=== PATIENT | female | born 1990 ===

== ENCOUNTER 2020-04-03 17:12 | Outpatient (REF) | payer OTHER, SELFPAY ==
[2020-04-04 01:48] LABS: CT PCR NOT DETECTED (Not Detect.); NG PCR NOT DETECTED (Not Detect.)
[2020-04-04 08:28] LABS: Syphilis Screen Nonreactive (Nonreactive)
[2020-04-05 09:04] LABS: HBS Num1 103.08 mIU/mL (0-7.99); HBc Num1 0.03 S/CO (0.00-0.79); HBsAGNum1 0.15 S/CO (0.00-0.99); Hepatitis B Core Antibody Nonreactive (Nonreactive); Hepatitis B Surface Antigen Negative (Negative); ~Hepatitis B Surface Antibody REACTIVE (Nonreactive)
[2020-04-05 09:25] LABS: HIV AB/AG Nonreactive (Nonreactive); HIV Num 1 0.08 S/CO (0.00-0.99)
== END 2020-04-03 17:13 | disposition home or self-care (01) ==
LOC: HO.LAB 17:12
PROVIDERS: Visit Provider Hospitalist
DX: Z30.09 Encounter for other general counseling and advice on contraception (principal)
CPT/HCPCS: 86704; 86706; 86780; 87340; 87389; 87491; 87591

== ENCOUNTER 2020-04-24 09:27 | Outpatient (REF) | payer OTHER, SELFPAY ==
[2020-04-24 10:29] LABS: Hemoglobin 12.7 g/dl (12.0-16.0); Mean Corpuscular HGB Conc 32.6 g/dl (31.0-35.0); Mean Corpuscular Volume 92.2 fL (80-98); Platelet Count 241 X10*3/uL (160-400); Red Blood Count 4.23 X10*6/uL (4.20-5.50); Red Cell Distribution Width 13.3 % (11.0-16.0); White Blood Count 7.1 X10*3/uL (4.8-10.8)
[2020-04-24 10:49] LABS: Alanine Aminotransferase 14 U/L (0-31); Albumin Level 4.2 g/dL (3.5-5.0); Alkaline Phosphatase 70 U/L (39-117); Anion Gap 13 (12-20); Aspartate Amino Transferase 17 U/L (5-31); Bilirubin Direct 0.3 mg/dL (0.0-0.5); Bilirubin Total 0.9 mg/dL (0.0-1.0); Blood Urea Nitrogen 11 mg/dL (9-16); Carbon Dioxide 25 mmol/L (22-29); Chloride 104 mmol/L (96-108); Cholesterol 128 mg/dL; Estimated Glomerular Filt Rate > 60; Glucose Fasting 77 mg/dL (60-99); HDL Cholesterol 50 mg/dL; LDL Cholesterol Calculated 65 mg/dl; Potassium 4.1 mmol/l (3.3-5.1); Sodium 138 mmol/L (135-145); Total Protein 6.9 g/dL (6.5-8.0); Triglycerides 66 mg/dL
[2020-04-24 11:12] LABS: TSH reflex Free T4 0.35 mIU/mL (0.32-4.0)
== END 2020-04-24 09:28 | disposition home or self-care (01) ==
LOC: HO.LAB 09:27
PROVIDERS: PCP Hospitalist; Visit Provider Hospitalist
DX: Z00.00 Encounter for general adult medical examination without abnormal findings (principal)
CPT/HCPCS: 36415; 80048; 80061; 80076; 84443; 85027

== ENCOUNTER 2021-01-07 19:17 | Outpatient (REF) | payer MEDICAID, SELFPAY ==
[2021-01-07 19:41] LABS: UPreg QC Valid YES; Urine Pregnancy NEGATIVE (NEGATIVE)
== END 2021-01-07 19:18 | disposition home or self-care (01) ==
LOC: HO.LNP 19:17
PROVIDERS: Visit Provider Family Medicine
DX: Z01.810 Encounter for preprocedural cardiovascular examination (principal)
CPT/HCPCS: 81025

== ENCOUNTER 2021-04-16 11:58 | Outpatient (REF) | payer OTHER, SELFPAY ==
--- NOTE | ~2021-04-16 | XR_ITS ---
EXAMINATION: XR KNEE, RIGHT CLINICAL INFORMATION: Pain COMPARISON: None TECHNIQUE: Four views of the right knee. FINDINGS: Bones and soft tissues are normal. No fracture or joint effusion. Alignment is anatomic. Joint spaces are well maintained. No abnormal soft tissue calcification. XR/XR knee RT 2V IMPRESSION: No significant osseous changes to explain patient's pain symptoms.
[2021-04-16 12:16] LABS: MANUAL DIFF FLAG NO
[2021-04-16 12:51] LABS: Basophils Percent Auto 0.6 % (0-2); Eosinophils Absolute Auto 0.1 X10*3/uL (0.0-0.4); Eosinophils Percent Auto 1.4 % (0-4); Hematocrit 39.7 % (37.0-47.0); Imm Gran Abs Auto 0.01 X10*3/uL (0.00-0.03); Imm Gran Pct Auto 0.2 % (0.0-0.4); Lymphocytes Absolute Auto 1.7 X10*3/uL (1.2-4.9); Lymphocytes Percent Auto 33.9 % (20-40); Mean Corpuscular HGB Conc 32.7 g/dl (31.0-35.0); Mean Corpuscular Hemoglobin 29.7 pg (27.0-33.0); Mean Corpuscular Volume 90.8 fL (80.0-98.0); Mean Platelet Volume 12.2 fL (9.4-12.3); Monocytes Absolute Auto 0.5 X10*3/uL (0.1-1.2); Monocytes Percent Auto 10.1 % (2-11); Neutrophils Absolute Auto 2.8 x10*3/uL (2.0-8.3); Neutrophils Percent Auto 53.8 % (45-73); Platelet Count 288 X10*3/uL (160-400); Red Blood Count 4.37 X10*6/uL (4.20-5.50); Red Cell Distribution Width 12.6 % (11.0-16.0); White Blood Count 5.1 X10*3/uL (4.8-10.8)
[2021-04-16 12:59] LABS: Prothrombin Time 11.7 SEC (9.9-13.0)
[2021-04-16 13:02] LABS: Partial Thromboplastin Time 31.4 SEC (24.1-38.0)
[2021-04-16 13:11] LABS: Alanine Aminotransferase 20 U/L (0-31); Albumin Level 4.3 g/dL (3.5-5.0); Alkaline Phosphatase 63 U/L (39-117); Anion Gap 11 (12-20); Aspartate Amino Transferase 17 U/L (5-31); Bilirubin Total 0.5 mg/dL (0.0-1.0); Blood Urea Nitrogen 15 mg/dL (9-16); Calcium 9.2 mg/dL (8.4-10.2); Carbon Dioxide 25 mmol/L (22-29); Chloride 107 mmol/L (96-108); Estimated Glomerular Filt Rate > 60; Glucose Fasting 69 mg/dL (60-99); Sodium 139 mmol/L (135-145); Total Protein 7.3 g/dL (6.5-8.0)
[2021-04-16 13:18] LABS: HCG Quantitative < 2 mIU/mL
== END 2021-04-16 11:59 | disposition home or self-care (01) ==
LOC: HO.LAB 11:58
PROVIDERS: Family Medicine; Visit Provider Hospitalist
DX: Z00.00 Encounter for general adult medical examination without abnormal findings (principal); M25.561 Pain in right knee; R22.41 Localized swelling, mass and lump, right lower limb
CPT/HCPCS: 36415; 73560; 80053; 84702; 85025; 85610; 85730

== ENCOUNTER 2021-04-23 08:18 | Outpatient (REF) | payer OTHER, SELFPAY ==
[2021-04-23 11:38] LABS: C Reactive Protein 0.05 mg/dL (< or = 0.50)
[2021-04-23 12:29] LABS: Erythrocyte Sedimentation Rate 11 MM/HR (0-20)
== END 2021-04-23 08:19 | disposition home or self-care (01) ==
LOC: HO.WFDLDS 08:18
PROVIDERS: Visit Provider Hospitalist
DX: M25.561 Pain in right knee (principal); R22.41 Localized swelling, mass and lump, right lower limb
CPT/HCPCS: 36415; 85652; 86140

== ENCOUNTER 2021-07-16 08:55 | Outpatient (REF) | payer OTHER, SELFPAY ==
[2021-07-16 11:37] LABS: MANUAL DIFF FLAG NO
[2021-07-16 11:42] LABS: Appearance Urine CLEAR; Color Urine YELLOW; Glucose Urine UA NEG (NEG); Leukocyte Esterase Urine NEG (NEG); Nitrite Urine NEG (NEG); Specific Gravity - Urine 1.015 (1.005-1.025); Urine Blood NEG (NEG); Urine Ketones NEG (NEG); Urine Protein NEG (NEG-TRACE)
[2021-07-16 11:43] LABS: Basophils Percent Auto 0.5 % (0-2); Eosinophils Percent Auto 0.7 % (0-4); Hematocrit 37.3 % (37.0-47.0); Hemoglobin 12.5 g/dl (12.0-16.0); Imm Gran Abs Auto 0.01 X10*3/uL (0.00-0.03); Imm Gran Pct Auto 0.2 % (0.0-0.4); Lymphocytes Absolute Auto 1.5 X10*3/uL (1.2-4.9); Lymphocytes Percent Auto 25.9 % (20-40); Mean Corpuscular HGB Conc 33.5 g/dl (31.0-35.0); Mean Corpuscular Hemoglobin 30.6 pg (27.0-33.0); Mean Corpuscular Volume 91.2 fL (80.0-98.0); Mean Platelet Volume 12.2 fL (9.4-12.3); Monocytes Absolute Auto 0.5 X10*3/uL (0.1-1.2); Monocytes Percent Auto 8.8 % (2-11); Neutrophils Absolute Auto 3.6 x10*3/uL (2.0-8.3); Neutrophils Percent Auto 63.9 % (45-73); Platelet Count 245 X10*3/uL (160-400); Red Blood Count 4.09 X10*6/uL (4.20-5.50); Red Cell Distribution Width 12.8 % (11.0-16.0); White Blood Count 5.6 X10*3/uL (4.8-10.8)
[2021-07-16 11:48] LABS: Prothrombin Time 11.3 SEC (9.9-13.0)
[2021-07-16 11:59] LABS: HCG Quantitative < 2 mIU/mL
[2021-07-16 12:10] LABS: Alanine Aminotransferase 17 U/L (0-31); Albumin Level 4.3 g/dL (3.5-5.0); Alkaline Phosphatase 63 U/L (39-117); Anion Gap 10 (12-20); Aspartate Amino Transferase 18 U/L (5-31); Bilirubin Total 0.9 mg/dL (0.0-1.0); Blood Urea Nitrogen 15 mg/dL (9-16); Calcium 9.8 mg/dL (8.4-10.2); Carbon Dioxide 26 mmol/L (22-29); Chloride 106 mmol/L (96-108); Estimated Glomerular Filt Rate > 60; Glucose Fasting 79 mg/dL (60-99); Potassium 4.6 mmol/L (3.3-5.1); Sodium 137 mmol/L (135-145); Total Protein 7.3 g/dL (6.5-8.0)
== END 2021-07-16 08:56 | disposition home or self-care (01) ==
LOC: HO.WFDLDS 08:55
PROVIDERS: Visit Provider Hospitalist
DX: Z01.818 Encounter for other preprocedural examination (principal)
CPT/HCPCS: 36415; 80053; 81003; 84702; 85025; 85610

== ENCOUNTER 2021-09-26 11:01 | Outpatient (REF) | payer OTHER, SELFPAY ==
[2021-09-26 14:54] LABS: Influenza A PCR POSITIVE (Negative); Influenza B PCR NEGATIVE (Negative); Resp Syncy Virus RNA Qual PCR NEGATIVE (Negative); SARS COV2 PCR INHOUSE NEGATIVE (Negative)
== END 2021-09-26 11:02 | disposition home or self-care (01) ==
LOC: HO.LAB 11:01
PROVIDERS: Visit Provider Hospitalist
DX: R09.89 Other specified symptoms and signs involving the circulatory and respiratory systems (principal); Z20.822 Contact with and (suspected) exposure to COVID-19
CPT/HCPCS: 0241U

== ENCOUNTER 2021-11-07 14:38 | Outpatient (REF) | payer OTHER, SELFPAY ==
--- NOTE | ~2021-11-07 | US_ITS ---
EXAMINATION: ULTRASOUND EXTREMITY NONVASCULAR CLINICAL INFORMATION: History of fall 7 years ago with slow the developing lump there is below-knee. COMPARISON: Old right knee exam 04/16/2021 TECHNIQUE: Limited imaging below the right knee was performed. FINDINGS: Imaging of formal lump scanned along the anterior superior left lower leg reveals no mass or fluid collection. There is no echoes to suspect any lipoma either. Probably patient has a prominent anterior tubercle and clinically feels a lump. Correlate with new knee x-rays.. US/US extremity nonvascular IMPRESSION: No echogenic lump, mass or fluid seen inferior to the right knee where patient points to a palpable lump.
== END 2021-11-07 14:39 | disposition home or self-care (01) ==
LOC: HO.HMGCX 14:38
PROVIDERS: PCP Hospitalist; Visit Provider Hospitalist
DX: R22.41 Localized swelling, mass and lump, right lower limb (principal)
CPT/HCPCS: 76882

== ENCOUNTER 2021-11-18 16:45 | Outpatient (REF) | payer OTHER, SELFPAY ==
--- NOTE | ~2021-11-18 | XR_ITS ---
EXAMINATION: XR KNEE, RIGHT CLINICAL INFORMATION: R22.41 - Localized swelling, mass and lump, right lower limb COMPARISON: Radiographs right knee 04/16/2021 TECHNIQUE: Three views of the right knee. FINDINGS: No fracture, dislocation, destructive process, or focal exostosis. No joint narrowing or erosive change or chondrocalcinosis. No suprapatellar effusion. XR/XR knee RT 3V IMPRESSION: Unremarkable right knee.
== END 2021-11-18 16:46 | disposition home or self-care (01) ==
LOC: HO.XRAY 16:45
PROVIDERS: PCP Hospitalist; Visit Provider Hospitalist
DX: R22.41 Localized swelling, mass and lump, right lower limb (principal)
CPT/HCPCS: 73562

== ENCOUNTER 2022-05-01 15:27 | Outpatient (REF) | payer OTHER, SELFPAY ==
[2022-05-02 12:36] LABS: Influenza A PCR NEGATIVE (Negative); Influenza B PCR NEGATIVE (Negative); Resp Syncy Virus RNA Qual PCR NEGATIVE (Negative); SARS COV2 PCR INHOUSE NEGATIVE (Negative)
== END 2022-05-01 15:28 | disposition home or self-care (01) ==
LOC: HO.LAB 15:27
PROVIDERS: Visit Provider Nurse Practitioner Family
DX: Z20.822 Contact with and (suspected) exposure to COVID-19 (principal); J06.9 Acute upper respiratory infection, unspecified
CPT/HCPCS: 0241U

== ENCOUNTER 2022-09-24 11:37 | Outpatient (REF) | payer OTHER, SELFPAY ==
[2022-09-25 02:58] LABS: CT PCR NOT DETECTED (Not Detect.); NG PCR NOT DETECTED (Not Detect.)
[2022-09-25 10:54] LABS: BV Int Neg Control Negative (Negative); BV Int Pos Control Positive (Positive)
[2022-09-27 04:04] LABS: HPV mRNA E6/E7 rflx Not Detected (Not Detected)
== END 2022-09-24 11:38 | disposition home or self-care (01) ==
LOC: HO.LNP 11:37
PROVIDERS: PCP Hospitalist; Visit Provider Advanced Practice Midwife
DX: Z01.419 Encounter for gynecological examination (general) (routine) without abnormal findings (principal); Z20.2 Contact with and (suspected) exposure to infections with a predominantly sexual mode of transmission; Z79.899 Other long term (current) drug therapy
CPT/HCPCS: 0353U; 87480; 87510; 87624; 87660; 88142

== ENCOUNTER 2022-09-26 08:53 | Outpatient (REF) | payer OTHER, SELFPAY ==
[2022-09-26 11:38] LABS: Hematocrit 41.1 % (37.0-47.0); Hemoglobin 13.4 g/dl (12.0-16.0); Mean Corpuscular HGB Conc 32.6 g/dl (31.0-35.0); Mean Corpuscular Hemoglobin 29.3 pg (27.0-33.0); Mean Corpuscular Volume 89.7 fL (80.0-98.0); Platelet Count 279 X10*3/uL (160-400); Red Blood Count 4.58 X10*6/uL (4.20-5.50); White Blood Count 4.6 X10*3/uL (4.8-10.8)
[2022-09-26 12:09] LABS: Alanine Aminotransferase 26 U/L (0-31); Albumin Level 4.3 g/dL (3.5-5.0); Alkaline Phosphatase 70 U/L (39-117); Anion Gap 11 (12-20); Aspartate Amino Transferase 22 U/L (5-31); Bilirubin Total 1.2 mg/dL (0.0-1.0); Blood Urea Nitrogen 14 mg/dL (9-16); Calcium 9.6 mg/dL (8.4-10.2); Carbon Dioxide 27 mmol/L (22-29); Chloride 107 mmol/L (96-108); Cholesterol 147 mg/dL; Estimated Glomerular Filt Rate > 60; Glucose Fasting 81 mg/dL (60-99); HDL Cholesterol 50 mg/dL; LDL Cholesterol Calculated 83 mg/dl; Potassium 4.5 mmol/L (3.3-5.1); Sodium 140 mmol/L (135-145); Total Protein 7.2 g/dL (6.5-8.0); Triglycerides 71 mg/dL
[2022-09-26 12:27] LABS: TSH reflex Free T4 0.56 uIU/mL (0.32-4.0); Vitamin D 25-OH Total 23.1 ng/mL (>30)
[2022-09-26 12:50] LABS: Syphilis Screen Nonreactive (Nonreactive)
[2022-09-26 12:51] LABS: HIV AB/AG Nonreactive (Nonreactive); HIV Num 1 0.07 S/CO (0.00-0.99); Hepatitis B Surface Antigen Negative (Negative); ~HepC Num1 0.38 S/CO (0.00-0.79); ~Hepatitis C Antibody Nonreactive (Nonreactive)
== END 2022-09-26 08:54 | disposition home or self-care (01) ==
LOC: HO.HMGCLDS 08:53
PROVIDERS: Absent Provider Advanced Practice Midwife; PCP Hospitalist; Visit Provider Nurse Practitioner Family
DX: Z00.00 Encounter for general adult medical examination without abnormal findings (principal); Z11.3 Encounter for screening for infections with a predominantly sexual mode of transmission; Z11.4 Encounter for screening for human immunodeficiency virus [HIV]
CPT/HCPCS: 36415; 80053; 80061; 82306; 84443; 85027; 86780; 86803; 87340; 87389

== ENCOUNTER 2023-01-01 12:37 | Outpatient (AMB) | payer OTHER, SELFPAY ==
[2023-01-01 12:39] VITALS: BP 122/80; PULSE 77; TEMP 36.4; O2SAT 100; BMI 29.8
--- NOTE | 2023-01-01 12:39 | MHC.PC.OV ---
Vital Signs 01/01/23 12:39 Height 5 ft 3 in Weight 168 lb 2 oz BMI 29.8 BP 122/80 Blood Pressure Location Lt brachial Pulse 77 Pulse Source Pulse Oximeter Temp 97.6 F Temp Source Oral Pulse Oximetry (%) 100 Oxygen Delivery Method Room Air Intake Visit Reasons: mass of right lower leg Intake Note: Patient is here with complaint of lower right leg bump below her knee. She states it's been there for years after a fall. Allergies aspirin [ASPIRIN] Allergy (Severe, Verified 01/01/23 13:21) eye swelling, eyes swell Medication List - Last Reconciled 01/01/23 by Tommie Brown CNP albuterol sulfate 90 mcg/actuation (ProAir HFA) 2 puffs inhalation Q4-6H PRN albuterol sulfate 90 mcg/actuation 2 puffs inhalation Q4-6H PRN 30 days albuterol sulfate 90 mcg/actuation (Ventolin HFA) 1 inh inhalation QID PRN albuterol sulfate 90 mcg/actuation (Ventolin HFA) 2 puffs inhalation Q6H PRN 30 days benzonatate 100 mg PO BID 10 days cholecalciferol (vitamin D3) 25 mcg PO DAILY 30 days diphenhydramine HCl 25 mg PO BEDTIME PRN fluticasone propionate 50 mcg/actuation 1 spray intranasal DAILY 1 month loratadine (Allergy Relief (loratadine)) 10 mg PO DAILY metronidazole 500 mg PO BID 7 days ProAir RespiClick 90 mcg/actuation (albuterol sulfate) 2 inhalations inhalation Q6H PRN 1 month NS sodium chloride 0.65% 2 sprays intranasal Q2H PRN trazodone 50mg PO 3 times a day as needed and 100 mg at bedtime; use 50 mg for moderate anxiety or distress and 100 for severe anxiety or distress 1 month Tobacco use date assessed: 07/24/22 Dental Screening Dental Screen Date: 01/01/23 Did you have a dental visit in the last 12 months?: Yes Did you have a dental problem in the last 6 months where you did not have access to dental care?: No Was dental information given to patient?: No HPI HPI Comments History of Present Illness Details 32-year-old female presents with complaints of a lump to her right lower leg. She states the lump has been present after she fell jumping in a trampoline about 5 years ago. She reports occasional pressure sensation to the lump. She states the lump has gotten bigger over the years. No tingling or numbness. She had an ultrasound and was followed by Dermatology a year ago. Ultrasound on 11/07/2021 revealed the following: IMPRESSION: No echogenic lump, mass or fluid seen inferior to the right knee where patient points to a palpable lump. PFSH Surgical History No pertinent past surgical history Family History Father Depression Mother Depression Cervical cancer Family/Other FH: mental illness Social History Housing: Apartment Alcohol intake: former Patient Tobacco Use Status: Never used Tobacco e-Cigarette/Vaping Use: Never Used Substance Use Type: Marijuana service: No Current occupational status: employed Cognitive needs: No Hearing needs: No Vision needs: No Female Reproductive History Menstrual Age of Menarche: 12 Questionnaire Thrive Questionnaire Date Thrive assessed: 07/24/22 MAXIMINO-7 AMB Questionnaire MAXIMINO-7 Date MAXIMINO - 7 assessed: 07/24/22 Source: Developed by Drs. Chito Servin, Re Bowens, Tyler Shea and colleagues, with an educational roni from [employer]. Review of Systems Const Details: Const Denies chills, Denies fatigue, Denies fever(s), Denies headache(s) and Denies weakness ENT Denies dizziness and Denies headache(s) Card Denies chest pain, Denies lightheadedness, Denies dyspnea and Denies other (Palpitations) Resp Denies cough, Denies dyspnea, Denies wheezing and Denies other ( shortness of breath) GI Denies abdominal pain, Denies melena, Denies hematochezia, Denies change in bowel habits, Denies dyspepsia and Denies nausea Denies hematuria and Denies dysuria Musc Denies abnormal gait, Denies myalgias, Denies arthralgias, Denies numbness and Denies tingling Skin/Breast Reports lump to right lower leg, Denies rash, Denies unusual bruising and Denies wounds Neuro Denies abnormal gait, Denies dizziness, Denies headache(s), Denies memory loss, Denies numbness, Denies Sensory deficit (Neuro), Denies tingling and Denies weakness Psych Denies anxiety, Denies depression, Denies memory loss Endo Denies cold intolerance, Denies fatigue, Denies heat intolerance, Denies polydipsia and Denies polyuria Aller/Immun Denies wheezing Physical exam (Primary Care) Vital Signs: Last Vital Signs Temp 97.6 F 01/01/23 12:39 Pulse 77 01/01/23 12:39 BP 122/80 01/01/23 12:39 Pulse Ox 100 01/01/23 12:39 Oxygen Delivery Method Room Air 01/01/23 12:39 BMI result Body Mass Index 29.8 Tobacco/Smoking Status: Tobacco use Status Tobacco use date assessed 07/24/22 01/01/23 12:44 Patient Tobacco Use Status Never used Tobacco 01/01/23 12:44 e-Cigarette/Vaping Use Never Used 01/01/23 12:44 Thrive Assessment: Date of Thrive Assessment Date Thrive assessed 07/24/22 01/01/23 12:44 Const Other: General: no acute distress and well developed Nutritional Appearance: well nourished Orientation/consciousness: patient oriented x3 HENMT Head: Yes normocephalic and Yes atraumatic Eyes General: appearance normal, both eyes and all related structures Pupils: Equal, round and reactive pupils present EOM: EOMs intact bilaterally Resp Effort & Inspection: normal respiratory effort Auscultation: clear to auscultation bilaterally Cardio Rate: regular rate Rhythm: regular rhythm Heart sounds: S1 normal heart sound present, S2 normal heart sound present, no gallops, no murmurs and no rubs GI Palpation (GI): No Abdominal aortic bruit present, Soft to palpation, nontender, No hepatosplenomegaly present and No Rebound tenderness present Auscultation: normal bowel sounds General: Yes no CVA tenderness Back/Spine/Pelvis Back: no CVA tenderness Cervical Spine: cervical ROM normal and No Cervical spine tenderness Thoracic/Lumbar Spine: thoraco-lumbar ROM normal, No pain with thoraco-lumbar ROM, No thoracic spinal tenderness and No lumbar spinal tenderness Extrem General: Yes normal to inspection, No edema and No calf tenderness Skin General: warm and dry. Normal skin color. Normal skin turgor Lesions: Approximately 3 cm x 3 cm round, slightly raised lesion palpated to the right lower leg proximal to the knee, no injury or trauma noted Rashes: no rashes Trauma: no lacerations or abrasions Wounds: no wounds Nails: normal Neuro General: patient oriented x3, gait normal and no focal neuro deficit Cranial nerves: Yes Equal, round and reactive pupils present Cognition (Neuro): normal cognition Gait exam (Neuro): Normal gait present Sensory Exam: No Sensory deficit (Neuro) Psych Appearance: grossly normal Affect: normal affect Attitude: cooperative Thought process: Normal thought process present Assessment and Plan Assessment & Plan (1) Lump of skin of right lower extremity: Code(s): R22.41 - Localized swelling, mass and lump, right lower limb Plan: 32-year-old female presents with complaints of a lump to her right lower leg which has been present for approximately 5 years. Approximately 3 cm x 3 cm round, slightly raised lesion palpated to the right lower leg proximal to the knee, no injury or trauma noted Ultrasound ordered Warm/cold compresses encouraged May take Tylenol or Motrin for pain or discomfort Encouraged to follow-up with Dermatology as needed Return with worsening or new signs and symptoms Verbalized understanding and agreed with treatment plan. Orders: Orders US soft tiss head and/or neck Today R22.41 - Localized swelling, mass and lump, right lower limb Coding Level of Care Code Est Pt Level 3 (38705) Diagnoses Lump of skin of right lower extremity R22.41 Time Spent (min) 25
== END 2023-01-01 13:35 | disposition home or self-care (01) ==
PROVIDERS: PCP Hospitalist; Visit Provider Nurse Practitioner Family
DX: R22.41 Localized swelling, mass and lump, right lower limb (principal)
CPT/HCPCS: 99213

== ENCOUNTER 2023-01-22 16:40 | Outpatient (REF) | payer OTHER, SELFPAY ==
--- NOTE | ~2023-01-22 | US_ITS ---
EXAMINATION: ULTRASOUND EXTREMITY NONVASCULAR CLINICAL INFORMATION: Palpable lump right lower extremity. COMPARISON: None. TECHNIQUE: Targeted sonography of the right lower leg was performed. FINDINGS: Sonographic interrogation of palpable lump of the right lower leg inferior to the knee at the site indicated by patient. There is no discrete mass or focal fluid collection. US/US extremity nonvascular IMPRESSION: Unremarkable examination. The decision to follow the area of concern should be based on the clinical assessment. If clinically indicated further cross-sectional imaging could be performed.
== END 2023-01-22 16:41 | disposition home or self-care (01) ==
LOC: HO.US 16:40
PROVIDERS: PCP Hospitalist; Visit Provider Nurse Practitioner Family
DX: R22.41 Localized swelling, mass and lump, right lower limb (principal)
CPT/HCPCS: 76882

== ENCOUNTER 2023-06-15 10:09 | Outpatient (AMB) | payer OTHER, SELFPAY ==
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
[2023-06-15 10:13] VITALS: BP 98/66; PULSE 78; RESP 13; TEMP 36.4; O2SAT 99; BMI 30.3
== END 2023-06-15 11:44 | disposition home or self-care (01) ==
PROVIDERS: PCP Hospitalist; Visit Provider Nurse Practitioner Family
DX: F32.A Depression, unspecified (principal); J45.20 Mild intermittent asthma, uncomplicated
CPT/HCPCS: 96127; 99214

== ENCOUNTER 2023-08-26 15:46 | Outpatient (AMB) | payer OTHER, SELFPAY ==
--- NOTE | 2023-08-26 16:02 | MHC.OFFWIV ---
Intake Vital Signs 08/26/23 16:04 Height 5 ft 3 in BP 102/62 Blood Pressure Location Lt brachial Position Sitting Pulse 76 Pulse Source Pulse Oximeter Temp 97.8 F Temp Source Oral Pulse Oximetry (%) 97 Oxygen Delivery Method Room Air Intake Visit Reasons: EP Sweating, dizzy Intake Note: pt is here for c.o sweating and dizzy and states she fell due to the diziness Patient Tobacco Use Status: Never used Tobacco Allergies aspirin [ASPIRIN] Allergy (Severe, Verified 08/26/23 16:30) eye swelling, eyes swell Medication List - Last Reconciled 08/26/23 by Joce Barton MD albuterol sulfate 90 mcg/actuation (ProAir HFA) 2 puffs inhalation Q4-6H PRN albuterol sulfate 90 mcg/actuation (Ventolin HFA) 2 puffs inhalation Q6H PRN 30 days cholecalciferol (vitamin D3) 25 mcg PO DAILY 30 days fluticasone propionate 50 mcg/actuation 1 spray intranasal DAILY PRN ProAir RespiClick 90 mcg/actuation (albuterol sulfate) 2 inhalations inhalation Q6H PRN 1 month NS trazodone 50 mg PO BID 30 days Do you need a note to return to daycare/school/sports/work: No HPI EP Sweating, dizzy HPI Details 33 yr old female presents to the office for a sick visit. Pt reports one episode of dizziness with diaphoresis. Sx lasted a few minutes. No chest pains or palpitations. No nausea or vomiting. Currently having her periods with heavy flow PFSH Medical History No pertinent past medical history Surgical History No pertinent past surgical history Family History Father Depression Mother Depression Cervical cancer Family/Other FH: mental illness Social History Housing: Apartment Alcohol intake: former Patient Tobacco Use Status: Never used Tobacco e-Cigarette/Vaping Use: Former Use Substance Use Type: Marijuana service: No Current occupational status: unemployed Cognitive needs: No Hearing needs: No Vision needs: No Female Reproductive History Menstrual Age of Menarche: 12 Physical Exam Vital Signs: Last Vital Signs Temp 97.8 F 08/26/23 16:04 Pulse 76 08/26/23 16:04 BP 102/62 08/26/23 16:04 Pulse Ox 97 08/26/23 16:04 Oxygen Delivery Method Room Air 08/26/23 16:04 Const General: cooperative and healthy appearing Nutritional Appearance: well nourished Orientation/consciousness: patient oriented x3 Limitations: no limitations HEENT Head: Yes normal to inspection Eyes General: appearance normal, both eyes and all related structures Neck Neck: Yes normal visual inspection Chest Chest palpation & inspection: normal palpation of entire chest wall Resp Effort & Inspection: normal respiratory effort Neuro General: patient oriented x3 Assessment & Plan Assessment & Plan (1) Dizziness: Code(s): R42 - Dizziness and giddiness Plan: Sx could be due to anemia. BW has been ordered. Will call with results Coding Level of Care Code Est Pt Level 3 (77107) Diagnoses Dizziness R42
[2023-08-26 16:04] VITALS: BP 102/62; PULSE 76; TEMP 36.6; O2SAT 97
== END 2023-08-26 16:50 | disposition home or self-care (01) ==
PROVIDERS: PCP Hospitalist; Visit Provider Internal Medicine
DX: R42 Dizziness and giddiness (principal)
CPT/HCPCS: 99213

== ENCOUNTER 2023-08-28 06:55 | Outpatient (REF) | payer OTHER, SELFPAY ==
[2023-08-28 10:46] LABS: Hematocrit 39.8 % (37.0-47.0); Hemoglobin 12.9 g/dl (12.0-16.0); Mean Corpuscular HGB Conc 32.4 g/dl (31.0-35.0); Mean Corpuscular Hemoglobin 30.1 pg (27.0-33.0); Mean Corpuscular Volume 92.8 fL (80.0-98.0); Mean Platelet Volume 12.2 fL (9.4-12.3); Platelet Count 247 X10*3/uL (160-400); Red Blood Count 4.29 X10*6/uL (4.20-5.50); Red Cell Distribution Width 13.2 % (11.0-16.0)
[2023-08-28 11:15] LABS: Alanine Aminotransferase 17 U/L (0-31); Albumin Level 3.9 g/dL (3.5-5.0); Alkaline Phosphatase 63 U/L (39-117); Anion Gap 10 (12-20); Aspartate Amino Transferase 18 U/L (5-31); Bilirubin Direct 0.3 mg/dL (0.0-0.5); Bilirubin Total 0.8 mg/dL (0.0-1.0); Blood Urea Nitrogen 14 mg/dL (9-16); Calcium 8.9 mg/dL (8.4-10.2); Carbon Dioxide 26 mmol/L (22-29); Chloride 107 mmol/L (96-108); Estimated Glomerular Filt Rate > 60; Glucose Random 93 mg/dL (60-115); Potassium 3.8 mmol/L (3.3-5.1); Sodium 139 mmol/L (135-145); Total Protein 6.8 g/dL (6.5-8.0)
[2023-08-28 11:32] LABS: Thyroid Stimulating Hormone 0.65 uIU/mL (0.32-4.0)
== END 2023-08-28 06:56 | disposition home or self-care (01) ==
LOC: HO.HMGCLDS 06:55
PROVIDERS: PCP Hospitalist; Visit Provider Internal Medicine
DX: R42 Dizziness and giddiness (principal)
CPT/HCPCS: 36415; 80048; 80076; 84443; 85027

== ENCOUNTER 2023-08-31 11:07 | Outpatient (AMB) | payer OTHER, SELFPAY ==
--- NOTE | 2023-08-31 11:07 | A.OFFPC_ITS ---
Vital Signs 08/31/23 11:09 Height 5 ft 3 in Weight 177 lb 4 oz BMI 31.4 BP 118/62 Blood Pressure Location Rt brachial Position Sitting Pulse 77 Pulse Source Pulse Oximeter Pulse Oximetry (%) 99 Oxygen Delivery Method Room Air Intake Visit Reasons: Dizziness, sweating and weakness Intake Note: Patient is here today for dizziness, sweating and weakness ongoing for a few weeks. 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 She notes that her symptoms have been ongoing for about a week, worst in the past one week She was evaluated at the walk-in clinic on 08/26/2023 for similar complaints. Labs were ordered and revealed unremarkable findings; no indication of infection, anemia, hypoglycemia, dehydration, electrolyte imbalances or thyroid disease She reports anxiety and depression symptoms sometimes, including worrying. She also reports 3-4 hours of sleep nightly. She states that she has not been taking Trazadone twice daily as prescribed because she does not like to take medication. She intends to start take Trazodone as prescribed. She notes that she drinks 8 oz of coffee daily and plenty of water She states that she does not always remember to take vitamin D3 as prescribed [facility] Medical History No pertinent past medical history Surgical History No pertinent past surgical history Family History Father Depression Mother Depression Cervical cancer Family/Other FH: mental illness Social History Housing: Apartment Alcohol intake: former Patient Tobacco Use Status: Never used Tobacco e-Cigarette/Vaping Use: Former Use Substance Use Type: Marijuana service: No Current occupational status: unemployed Cognitive needs: No Hearing needs: No Vision needs: No Female Reproductive History Menstrual Age of Menarche: 12 Questionnaire PHQ-9 Over the last 2 weeks, how often have you been bothered by any of the following problems? 1. Little interest or pleasure in doing things: several days 2. Feeling down, depressed, or hopeless: several days 3. Trouble falling or staying asleep, or sleeping too much: nearly every day 4. Feeling tired or having little energy: several days 5. Poor appetite or overeating: several days 6. Feeling bad about yourself - or that you are a failure or have let yourself or your family down: several days 7. Trouble concentrating on things, such as reading the newspaper or watching television: several days 8. Moving or speaking so slowly that other people could have noticed. Or the opposite - being so fidgety or restless that you have been moving around a lot more than usual: several days 9. Thoughts that you would be better off or of hurting yourself in some way: not at all Total score: 10 Depression Screening Interpretation: Positive Depression Screening Follow-up: Existing condition and In treatment Depression Screening Done: Yes Source: Developed by Drs. Chito Servin, Re Bowens, Tyler Shea and colleagues, with an educational roni from [employer]. Thrive Questionnaire Date Thrive assessed: 06/15/23 MAXIMINO-7 AMB Questionnaire MAXIMINO-7 Date MAXIMINO - 7 assessed: 08/31/23 Feeling nervous, anxious, or on edge: 1 = Several days Not being able to stop or control worryin = Several days Worrying too much about different things: 1 = Several days Trouble relaxin = Several days Being so restless that it is hard to sit still: 1 = Several days Becoming easily annoyed or irritable: 0 = Not at all Feeling afraid as if something awful might happen: 2 = More than half the days Total MAXIMINO-7 score (0-4 normal; 5-9 mild; 10-14 moderate; 15-21 severe): 7 Source: Developed by Drs. Chito Servin, Tyler Joseph and colleagues, with an educational roni from [employer]. Review of Systems Const Details: Const Denies chills, Denies fatigue, Denies fever(s), Denies headache(s) and Denies weakness ENT Denies dizziness and Denies headache(s) Card Denies chest pain, Denies lightheadedness, Denies dyspnea and Denies other (Palpitations) Resp Denies cough, Denies dyspnea, Denies wheezing and Denies other ( shortness of breath) GI Denies abdominal pain, Denies melena, Denies hematochezia, Denies change in bowel habits, Denies dyspepsia and Denies nausea Denies hematuria and Denies dysuria Musc Denies abnormal gait, Denies myalgias, Denies arthralgias, Denies numbness and Denies tingling Skin/Breast Denies rash, Denies unusual bruising and Denies wounds Neuro Denies abnormal gait, Denies dizziness, Denies headache(s), Denies memory loss, Denies numbness, Denies Sensory deficit (Neuro), Denies tingling and Denies weakness Psych Denies anxiety, Denies depression, Denies memory loss Endo Denies cold intolerance, Denies fatigue, Denies heat intolerance, Denies polydipsia and Denies polyuria Aller/Immun Denies wheezing Physical exam (Primary Care) Vital Signs: Last Vital Signs Pulse 77 08/31/23 11:09 BP 118/62 08/31/23 11:09 Pulse Ox 99 08/31/23 11:09 Oxygen Delivery Method Room Air 08/31/23 11:09 BMI result Body Mass Index 31.4 Tobacco/Smoking Status: Tobacco use Status Tobacco use date assessed 08/31/23 08/31/23 11:13 Patient Tobacco Use Status Never used Tobacco 08/31/23 11:07 e-Cigarette/Vaping Use Former Use 08/31/23 11:07 Depression Screening Interpretation: Positive Depression Screening Follow-up: Existing condition and In treatment Thrive Assessment: Date of Thrive Assessment Date Thrive assessed 06/15/23 08/31/23 11:07 Const Other: General: no acute distress and well developed Nutritional Appearance: well nourished Orientation/consciousness: patient oriented x3 HENMT Head: Yes normocephalic and Yes atraumatic Eyes General: appearance normal, both eyes and all related structures Pupils: Equal, round and reactive pupils present EOM: EOMs intact bilaterally Resp Effort & Inspection: normal respiratory effort Auscultation: clear to auscultation bilaterally Cardio Rate: regular rate Rhythm: regular rhythm Heart sounds: S1 normal heart sound present, S2 normal heart sound present, no gallops, no murmurs and no rubs GI Palpation (GI): No Abdominal aortic bruit present, Soft to palpation, nontender, No hepatosplenomegaly present and No Rebound tenderness present Auscultation: normal bowel sounds General: Yes no CVA tenderness Back/Spine/Pelvis Back: no CVA tenderness Cervical Spine: cervical ROM normal and No Cervical spine tenderness Thoracic/Lumbar Spine: thoraco-lumbar ROM normal, No pain with thoraco-lumbar ROM, No thoracic spinal tenderness and No lumbar spinal tenderness Extrem General: Yes normal to inspection, No edema and No calf tenderness Skin General: warm and dry. Normal skin color. Normal skin turgor Neuro General: patient oriented x3, gait normal and no focal neuro deficit Cranial nerves: Yes Equal, round and reactive pupils present Cognition (Neuro): normal cognition Gait exam (Neuro): Normal gait present Sensory Exam: No Sensory deficit (Neuro) Psych Appearance: grossly normal Affect: normal affect Attitude: cooperative Thought process: Normal thought process present Assessment and Plan Assessment & Plan (1) Dizziness: Code(s): R42 - Dizziness and giddiness Plan: Recent lab results are unremarkable Her symptoms may be attributed to anxiety, depression, vitamin-D deficiency Will order hydroxyzine 25 mg 3 times daily. Take as prescribed Will modify trazodone to 50 mg every night. Take as prescribed Advised to take vitamin D3 as prescribed Will recheck vitamin-D level Routine exercise encouraged Follow-up in 1 month for anxiety and depression or return sooner with worsening or new symptoms Verbalized understanding and agreed with treatment plan (2) Diaphoresis: Code(s): R61 - Generalized hyperhidrosis Plan: As above (3) Weakness: Code(s): R53.1 - Weakness Plan: As above (4) Anxiety and depression: Code(s): F41.9 - Anxiety disorder, unspecified; F32.A - Depression, unspecified Plan: PHQ-9 and MAXIMINO-7 scores revealed moderate depression and mild anxiety respectively Plan as above Orders: Orders Vitamin D 25-OH Total Today E55.9 - Vitamin D deficiency, unspecified Medications: New hydroxyzine HCl 25 mg PO TID 30 days PRN 90 tabs 1RF anxiety Changed From trazodone 50 mg PO BID 30 days 60 tabs 3RF To trazodone 50 mg PO DAILY 30 days 30 tabs 3RF Refilled cholecalciferol (vitamin D3) 25 mcg PO DAILY 30 days 30 tabs 3RF Coding Level of Care Code Est Pt Level 4 (96245) Diagnoses Dizziness R42 Diaphoresis R61 Weakness R53.1 Anxiety and depression F41.9; F32.A
[2023-08-31 11:09] VITALS: BP 118/62; PULSE 77; O2SAT 99; BMI 31.4
== END 2023-08-31 12:23 | disposition home or self-care (01) ==
PROVIDERS: PCP Nurse Practitioner Family; Visit Provider Nurse Practitioner Family
DX: R42 Dizziness and giddiness (principal); R61 Generalized hyperhidrosis; R53.1 Weakness; F41.9 Anxiety disorder, unspecified; F32.A Depression, unspecified
CPT/HCPCS: 99214

== ENCOUNTER 2023-08-31 11:42 | Outpatient (REF) | payer OTHER, SELFPAY ==
[2023-08-31 15:46] LABS: Vitamin D 25-OH Total 36.3 ng/mL (>30)
== END 2023-08-31 11:43 | disposition home or self-care (01) ==
LOC: HO.WFDLDS 11:42
PROVIDERS: Visit Provider Nurse Practitioner Family
DX: E55.9 Vitamin D deficiency, unspecified (principal)
CPT/HCPCS: 36415; 82306

== ENCOUNTER 2024-03-28 11:06 | Outpatient (AMB) | payer OTHER, SELFPAY ==
--- NOTE | 2024-03-28 11:32 | A.OFFPC_ITS ---
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 Is last menstrual period known: Yes Last menstrual period: 03/14/24 Post menopausal: No Patient : No Allergies aspirin [ASPIRIN] Allergy (Severe, Verified 03/28/24 12:03) eye swelling, eyes swell Medication List - Last Reconciled 03/28/24 by Tommie Brown CNP cholecalciferol (vitamin D3) 25 mcg PO DAILY 30 days fluticasone propionate 50 mcg/actuation 1 spray intranasal DAILY PRN Tobacco use date assessed: 03/28/24 Dental Screening Dental Screen Date: 03/28/24 Did you have a dental visit in the last 12 months?: Yes Did you have a dental problem in the last 6 months where you did not have access to dental care?: No Was dental information given to patient?: Patient has dentist HPI HPI Comments History of Present Illness Details 33-year-old female presents with complai nts of mass to her right lower leg (proximal to the knee) that has increased in size. She notes reports intermittent pressure sensation to the mass with prolonged standing. She has been applying ice and taking Tylenol and ibuprofen. The mass has been present for couple of years. Ultrasound of the mass on 01/22/2023 was unremarkable. X- ray of the right knee in 2021 was unremarkable. FORMERLY [facility], [facility]–1983 Medical History No pertinent past medical history Surgical History No pertinent past surgical history Family History Father Depression Mother Depression Cervical cancer Family/Other FH: mental illness Social History Housing: Apartment Alcohol intake: former Patient Tobacco Use Status: Never used Tobacco e-Cigarette/Vaping Use: Former Use Substance Use Type: Marijuana service: No Current occupational status: unemployed Cognitive needs: No Hearing needs: No Vision needs: No Female Reproductive History Menstrual Age of Menarche: 12 Date of last menstrual period: 03/14/24 Questionnaire PHQ-9 Over the last 2 weeks, how often have you been bothered by any of the following problems? 1. Little interest or pleasure in doing things: not at all 2. Feeling down, depressed, or hopeless: not at all 3. Trouble falling or staying asleep, or sleeping too much: not at all 4. Feeling tired or having little energy: not at all 5. Poor appetite or overeating: not at all 6. Feeling bad about yourself - or that you are a failure or have let yourself or your family down: not at all 7. Trouble concentrating on things, such as reading the newspaper or watching television: not at all 8. Moving or speaking so slowly that other people could have noticed. Or the opposite - being so fidgety or restless that you have been moving around a lot more than usual: not at all 9. Thoughts that you would be better off or of hurting yourself in some way: not at all Total score: 0 Depression Screening Interpretation: Negative Depression Screening Done: Yes Source: Developed by Drs. Chito Servin, Re Bowens, Tyler Shea and colleagues, with an educational roni from [employer]. Thrive Questionnaire Date Thrive assessed: 03/28/24 I am a: Patient What is your living situation today?: I have a steady place to live Within the past 12 months, did the food you bought not last and you didn't have the money to get more?: Never true Within the past 12 months, did you worry whether your food would run out before you got money to buy more?: Never true Do you have trouble paying for medicines?: No Do you have trouble getting transportation to medical appointments?: No Do you have trouble paying your heating and electricity bill?: Yes Do you have trouble taking care of your child, family member or friend?: No Do you have trouble with day-to-day activities such as bathing, preparing meals, shopping, managing finances, etc.?: No Are you currently unemployed and looking for a job?: No Are you interested in more education?: Yes Please select the resources that you would like help with: Education Currently or been in a relationship where the following occur: No concerns reported THRIVE Score: 1 AUDIT C Alcohol Use Questionnaire (AUDIT-C) 1. How often do you have a drink containing alcohol?: Never Total Score: 0 Score Reviewed/Action Taken: Yes MAXIMINO-7 AMB Questionnaire MAXIMINO-7 Date MAXIMINO - 7 assessed: 03/28/24 Feeling nervous, anxious, or on edge: 0 = Not at all Not being able to stop or control worryin = Not at all Worrying too much about different things: 0 = Not at all Trouble relaxin = Not at all Being so restless that it is hard to sit still: 0 = Not at all Becoming easily annoyed or irritable: 0 = Not at all Feeling afraid as if something awful might happen: 0 = Not at all Total MAXIMINO-7 score (0-4 normal; 5-9 mild; 10-14 moderate; 15-21 severe): 0 Source: Developed by Drs. Chito Servin, Re Bowens, Tyler Shea and colleagues, with an educational roni from [employer]. MAXIMINO-7 Assessment Billing MAXIMINO-7 Assessment Tool: MAXIMINO-7 Assessment 90105 Review of Systems Const Details: Const Denies chills, Denies fatigue, Denies fever(s), Denies headache(s) and Denies weakness ENT Denies dizziness and Denies headache(s) Card Denies chest pain, Denies lightheadedness, Denies dyspnea and Denies other (Palpitations) Resp Denies cough, Denies dyspnea, Denies wheezing and Denies other ( shortness of breath) GI Denies abdominal pain, Denies melena, Denies hematochezia, Denies change in karen l habits, Denies dyspepsia and Denies nausea Denies hematuria and Denies dysuria Musc Denies abnormal gait, Denies myalgias, Denies arthralgias, Denies numbness and Denies tingling Skin/Breast Reports as per HPI Neuro Denies abnormal gait, Denies dizziness, Denies headache(s), Denies memory loss, Denies numbness, Denies Sensory deficit (Neuro), Denies tingling and Denies weakness Psych Denies anxiety, Denies depression, Denies memory loss Endo Denies cold intolerance, Denies fatigue, Denies heat intolerance, Denies polydipsia and Denies polyuria Aller/Immun Denies wheezing Physical exam (Primary Care) Vital Signs: Last Vital Signs Temp 97.9 F 03/28/24 11:40 Pulse 76 03/28/24 11:40 Resp 16 03/28/24 11:40 BP 98/64 03/28/24 11:40 Pulse Ox 99 03/28/24 11:40 Oxygen Delivery Method Room Air 03/28/24 11:40 BMI result Body Mass Index 30.8 Tobacco/Smoking Status: Tobacco use Status Tobacco use date assessed 03/28/24 03/28/24 11:44 Patient Tobacco Use Status Never used Tobacco 03/28/24 11:33 e-Cigarette/Vaping Use Former Use 03/28/24 11:33 PHQ-9: PHQ-9 Score PHQ-9: Total score 0 03/28/24 17:15 Depression Screening Interpretation: Negative Thrive Assessment: Date of Thrive Assessment Date Thrive assessed 03/28/24 03/28/24 11:44 Currently or been in a relationship where the following occur: No concerns reported Const Other: General: no acute distress and well developed Nutritional Appearance: well nourished Orientation/consciousness: patient oriented x3 HENMT Head: Yes normocephalic and Yes atraumatic Eyes General: appearance normal, both eyes and all related structures Pupils: Equal, round and reactive pupils present EOM: EOMs intact bilaterally Resp Effort & Inspection: normal respiratory effort Auscultation: clear to auscultation bilaterally Cardio Rate: regular rate Rhythm: regular rhythm Heart sounds: S1 normal heart sound present, S2 normal heart sound present, no gallops, no murmurs and no rubs GI Palpation (GI): No Abdominal aortic bruit present, Soft to palpation, nontender, No hepatosplenomegaly present and No Rebound tenderness present Auscultation: normal bowel sounds General: Yes no CVA tenderness Back/Spine/Pelvis Back: no CVA tenderness Extrem General: Yes normal to inspection, No edema and No calf tenderness Skin General: warm and dry. Normal skin color. Normal skin turgor. Slightly raised, soft, non-fluctuant skin to the right anterior lower leg proximal to the knee, measuring approximately 6 cm x 7 cm round. Skin is intact. No erythema, edema or overt infection Lesions: no lesions Rashes: no rashes Trauma: no lacerations or abrasions Wounds: no wounds Nails: normal Neuro General: patient oriented x3, gait normal and no focal neuro deficit Cranial nerves: Yes Equal, round and reactive pupils present Cognition (Neuro): normal cognition Gait exam (Neuro): Normal gait present Sensory Exam: No Sensory deficit (Neuro) Psych Appearance: grossly normal Affect: normal affect Attitude: cooperative Thought process: Normal thought process present Coding Level of Care Code Est Pt Level 4 (99502) Diagnoses Mass of right lower leg R22.41 Additional Codes MAXIMINO-7 Assessment Billing - MAXIMINO-7 Assessment Tool: MAXIMINO-7 Assessment 94263 ([id number]) Assessment & Plan Assessment & Plan (1) Mass of right lower leg: Code(s): R22.41 - Localized swelling, mass and lump, right lower limb Category: Medical Plan: Mass to right lower leg was increased in size with intermittent pressure sensation with prolonged standing. X-ray of the mass and right knee were unremarkable Slightly raised, soft, non-fluctuant skin to the right anterior lower leg proximal to the knee, measuring approximately 6 cm x 7 cm round. Skin is intact. No erythema, edema or overt infection May take Tylenol ibuprofen for pain or discomfort Warm or cool compresses encouraged Referred to general surgery Encouraged to get urinalysis and fasting lipid panel blood work done before next visit Advised to follow-up for an extended physical exam Verbalized understanding and agreed with the treatment plan Orders: Orders Lipid Panel 03/28/24 Z00.00 - Encounter for general adult medical examination without abnormal findings UA CC w/rflx Micro + Cult 03/28/24 Z00.00 - Encounter for general adult medical examination without abnormal findings Referrals General Surgery Referral R22.41 - Localized swelling, mass and lump, right lower limb
[2024-03-28 11:40] VITALS: BP 98/64; PULSE 76; RESP 16; TEMP 36.6; O2SAT 99; BMI 30.8
== END 2024-03-28 12:23 | disposition home or self-care (01) ==
LOC: HO.HMCFM 11:07
PROVIDERS: PCP Nurse Practitioner Family; Visit Provider Nurse Practitioner Family
DX: R22.41 Localized swelling, mass and lump, right lower limb (principal)

== ENCOUNTER → 2024-03-28 11:06 | Outpatient (BNVA) | payer OTHER, SELFPAY | PROVIDERS: PCP Nurse Practitioner Family; Visit Provider Nurse Practitioner Family | DX: R22.41 Localized swelling, mass and lump, right lower limb (principal) | CPT/HCPCS: 96127; 99212 ==